=== PATIENT | male | born 1980 | race Caucasian/White ===

== ENCOUNTER 2021-11-25 20:33 | Emergency (ER) | payer OTHER ==
[~2021-11-25] VITALS: Ht 190.5 cm; Wt 90.7 kg
[2021-11-25] MEDS ORDERED: PAXIL20 MG PO (21:04)
[2021-11-25] MEDS ORDERED: TESTIM5 GM TOP (21:05)
== END 2021-11-25 22:54 | disposition home or self-care (01) ==
LOC: ER 20:33
DX: S90.512A Abrasion, left ankle, initial encounter (principal); X58.XXXA Exposure to other specified factors, initial encounter; Y93.9 Activity, unspecified; Y92.9 Unspecified place or not applicable; Y99.9 Unspecified external cause status